=== PATIENT | female | born 1970 | race Caucasian/White ===

== ENCOUNTER 2017-12-02 06:09 | Day surgery (SDC) | payer OTHER ==
[~2017-12-02] VITALS: Ht 167.6 cm; Wt 93.0 kg
[~2017-12-02 06:09] MED LIST: PERCOCET 5/31 TABLET PO
[2017-12-02 07:13] VITALS: BP 115/68
[2017-12-02 13:05] LABS: TROP-I INTERPRETATION NEGATIVE; TROPONIN-I < 0.01 ng/mL (0.0-0.30)
[2017-12-02 13:38] VITALS: BP 128/64
[2017-12-02 14:40] VITALS: BP 110/60
== END 2017-12-02 14:45 | disposition home or self-care (01) ==
LOC: SDC 06:09
PROVIDERS: Anesthesiology
DX: M47.22 Other spondylosis with radiculopathy, cervical region (principal); M50.122 Cervical disc disorder at C5-C6 level with radiculopathy; Z95.1 Presence of aortocoronary bypass graft
CPT/HCPCS: 72020; 76000; 84132; 84484; 93005; C1713; J0330; J0690; J1100; J1170; J1200; J2250; J2405; J2710; J3010; Q0175